=== PATIENT | female | born 1940 | race Caucasian/White ===

== ENCOUNTER → 2023-08-21 10:46 | Outpatient (CLI) | payer MEDICARE, OTHER, SELFPAY | PROVIDERS: Family Provider Family Medicine; PCP Family Medicine; Referring Provider Family Medicine; Visit Provider Family Medicine | DX: M62.89 Other specified disorders of muscle (principal); R29.898 Other symptoms and signs involving the musculoskeletal system; M79.601 Pain in right arm | CPT/HCPCS: 95886; 95909 ==